=== PATIENT | female | born 1960 | race American Indian/Alaskan Native ===

== ENCOUNTER 2016-07-24 16:33 | Observation (INO) | payer SELFPAY ==
[2016-07-24 16:34] VITALS: BMI 27.4
[2016-07-24 16:49] VITALS: O2SAT 100
--- NOTE | 2016-07-24 17:33 | C.PDOC ---
History Of Present Illness 56-YEAR-OLD FEMALE, PRESENTS TO THE EMERGENCY DEPARTMENT WITH COMPLAINTS OF LEFT BACK PAIN X 3 MONTHS; PAIN IS WORSENING X 1 WEEK. PAIN IS LOCALIZED AND WORSE W POSITIONING. PATIENT IS S/P MRI 03/2016 +L4/5/S1 BULGING DISCS, R RENAL CYSTS. P STATES SHE HAS HAD DISC PROBLEM "ALL MY LIFE". PATIENT STATES HER PMD AND HAS NOT BEEN ABLE TO FIND NEW ONSET SINCE MRI. NO FOCAL WEAK/NUMB. PAIN OCC RADIATION B/L LEGS. NO FEVER, UTI SX. EXAM MILD DIST NONTOXIC +L CVAT BACK AROM WO DIFF NEURP INTACT ABD NEG Time Seen by Provider: 07/24/16 17:18 Chief Complaint (Nursing): Back Pain History Per: Patient History/Exam Limitations: no limitations Onset/Duration Of Symptoms: Days Current Symptoms Are (Timing): Still Present Past Medical History Reviewed: Historical Data, Nursing Documentation, Vital Signs Vital Signs: Last Vital Signs Temp 98.1 F 07/24/16 18:28 Pulse 66 07/24/16 18:28 Resp 16 07/24/16 18:28 BP 100/65 07/24/16 18:28 Pulse Ox 100 07/24/16 18:28 - Medical History PMH: Asthma, Seizures Denies: Chronic Kidney Disease Surgical History: Appendectomy Family History: States: No Known Family Hx - Social History Hx Tobacco Use: Yes Hx Alcohol Use: No Hx Substance Use: Yes (Cocaine, marijuana) - Immunization History Hx Tetanus Toxoid Vaccination: No Hx Influenza Vaccination: No Hx Pneumococcal Vaccination: No Review Of Systems Except As Marked, All Systems Reviewed And Found Negative. Constitutional: Negative for: Fever Respiratory: Negative for: Shortness of Breath Gastrointestinal: Negative for: Nausea, Vomiting Musculoskeletal: Positive for: Back Pain Neurological: Negative for: Weakness, Numbness Physical Exam - Physical Exam Appears: Non-toxic, No Acute Distress Skin: Warm, Dry, No Rash Oral Mucosa: Moist Lips: Normal Appearing Gingiva: Normal Appearing Neck: Normal ROM Gastrointestinal/Abdominal: Soft, No Tenderness Back: CVA Tenderness (LEFT), Other (AROM WO DIFF) Extremity: Normal ROM Neurological/Psych: Oriented x3 (NO FOCAL NEURO DEF) ED Course And Treatment - Laboratory Results Result Diagrams: 07/24/16 17:57 07/24/16 17:57 O2 Sat by Pulse Oximetry: 100 Progress - Data Reviewed Data Reviewed: Lab, Diagnostic imaging, Old records ED OBSERVATION Discharge: Yes Date of observation admission: 07/24/16 Time of observation admission: 17:30 - Observation admission statement Patient is being placed in observation because:: BACK PAIN - Goals of Observation Goals of observation are:: NO ACUTE FINDINGS, SX IMPROVE - Progress Note Progress Note: 07/24/16 18:[address] = NO ACUTE FINDINGS. ADVISED LAXATIVE, FU PMD /PAIN MGMT Disposition Counseled Patient/Family Regarding: Studies Performed, Diagnosis, Need For Followup, Rx Given - Disposition Disposition: HOME/ ROUTINE Disposition Time: 18:46 Condition: IMPROVED - Clinical Impression Clinical Impression: Low back pain, Constipation - Scribe Statement The provider has reviewed the documentation as recorded by the Lizbeth STROUD All medical record entries made by the Lizbeth were at my direction and personally dictated by me. I have reviewed the chart and agree that the record accurately reflects my personal performance of the history, physical exam, medical decision making, and the department course for this patient. I have also personally directed, reviewed, and agree with the discharge instructions and disposition.
[2016-07-24] MEDS ORDERED: Morphine 4 MG/ML VIAL ONE (17:42)
[2016-07-24] MEDS ORDERED: Sodium Chloride 0.9% 1,000 ML ONE (17:43)
[2016-07-24 18:09] LABS: BASO % 0.6 % (0.0-2.0); EOS # 0.1 K/uL (0.0-0.7); EOS % 2.1 % (0.0-4.0); HEMATOCRIT 44.5 % (34.0-47.0); LYMPH # 1.4 K/uL (1.0-4.3); MEAN CELL VOLUME 91.5 fL (81.0-99.0); MEAN CORPUSCULAR HEMOGLOBIN 30.5 pg (27.0-31.0); MEAN CORPUSCULAR HGB CONC 33.3 g/dL (33.0-37.0); MEAN PLATELET VOLUME 8.2 fL (7.2-11.7); MONO # 0.7 K/uL (0.0-0.8); MONO % 10.6 % (0.0-10.0); RED CELL DISTRIBUTION WIDTH 13.7 % (11.5-14.5); WHITE BLOOD COUNT 6.5 K/uL (4.8-10.8)
[2016-07-24 18:10] LABS: RBC URINE 2 /hpf (0-3); URINE BILIRUBIN NEGATIVE (NEGATIVE); URINE BLOOD NEGATIVE (NEGATIVE); URINE COLOR Yellow (YELLOW); URINE GLUCOSE (UA) NORMAL (Normal); URINE KETONE NEGATIVE (NEGATIVE); URINE LEUKOCYTE ESTERASE 1+ Leu/uL (Negative); URINE PROTEIN NEGATIVE (NEGATIVE)
[2016-07-24 18:18] LABS: CHLORIDE 103 mmol/L (98-107); POTASSIUM 5.5 mmol/L (3.6-5.2); SODIUM 140 mmol/L (132-148)
[2016-07-24 18:20] LABS: ALB/GLOB RATIO 1.2 (1.0-2.1); ALKALINE PHOSPHATASE 67 U/L (38-126); AST/SGOT 46 U/L (14-36); BILIRUBIN,TOTAL 0.7 mg/dL (0.2-1.3); CARBON DIOXIDE 25 mmol/L (22-30); GFR AFRICAN-AMERICAN > 60; TOTAL PROTEIN 7.9 g/dL (6.3-8.3)
[2016-07-24 18:21] LABS: ALT/SGPT 26 U/L (9-52); BLOOD UREA NITROGEN 14 mg/dL (7-17); GLUCOSE,RANDOM 98 mg/dL (65-105)
[2016-07-24 18:26] LABS: WBC URINE 5 /hpf (0-5)
[2016-07-24 18:29] VITALS: BP 100/65; PULSE 66; RESP 16; TEMP 98.1
--- NOTE | 2016-07-24 18:31 | CT ---
EXAM: CT Abdomen and Pelvis Without Intravenous Contrast CLINICAL HISTORY: 56 years old, female; Pain; Abdominal pain; Flank; Left lower quadrant (llq); Additional info: Abd pain l flank TECHNIQUE: Axial computed tomography images of the abdomen and pelvis without intravenous contrast. This CT exam was performed using one or more of the following dose reduction techniques: automated exposure control, adjustment of the mA and/or kV according to patient size, and/or use of iterative reconstruction technique. Coronal and sagittal reformatted images were created and reviewed. EXAM DATE/TIME: 07/24/2016 5:34 PM COMPARISON: CT - ABD PELVIS PO IV CONTRAST 01/16/2015 2:35:48 AM FINDINGS: Lower thorax: Heart size is normal. There is minimal scarring at the lung bases. There is a small hiatal hernia. ABDOMEN: Liver: unremarkable Gallbladder and bile ducts: unremarkable Pancreas: unremarkable Spleen: unremarkable Adrenals: unremarkable Kidneys and ureters: There is a right renal cyst.Kidneys and ureters are otherwise unremarkable. Stomach and bowel: Stomach is partially distended. Rotation is normal. Small bowel is mildly distended with fluid and air. There is no obstruction. Terminal ileum is unremarkable.Appendix is not visualized. There are clips at the base of the cecum. There is a right lower quadrant. There is moderate stool in the colon. There is minimal diverticulosis Appendix: See stomach and bowel PELVIS: Bladder: Bladder is almost completely empty. Reproductive: Uterus and adnexal structures are unremarkable. ABDOMEN and PELVIS: Intraperitoneal space: There is no significant fluid. There is no free air. Bones/joints: There are degenerative changes in the osseus structures. There is scoliosis. Soft tissues: There is a very small fat-containing umbilical hernia. Vasculature: There are calcified phleboliths. Vascular structures are unremarkable. Lymph nodes: There is no pathologic adenopathy. IMPRESSION: No renal or ureteral stones or hydronephrosis; diverticulosis without CT findings of diverticulitis; possible constipation Additional findings as described above.
[2016-07-24] MEDS ORDERED: Lidocaine 5% Patch TD STA (18:47)
== END 2016-07-24 18:46 | disposition home or self-care (01) ==
LOC: C.ER 16:33 → C.9OBSV 17:30
PROVIDERS: ADMIT Emergency Medicine; ATTEND Emergency Medicine
DX: M54.5 Low back pain (principal); K59.00 Constipation, unspecified; Z87.891 Personal history of nicotine dependence
CPT/HCPCS: 36415; 74176; 80053; 81001; 83690; 85025; 87086; 96374; G0378

== ENCOUNTER 2018-01-13 12:58 | Emergency (ER) | payer MEDICAID, OTHER ==
[2018-01-13 12:58] VITALS: BMI 27.4
[2018-01-13 13:11] VITALS: RESP 18; TEMP 98.3
--- NOTE | 2018-01-13 13:48 | C.PDOC ---
History Of Present Illness 57 year old female with PMHx of seizure presents to the ED complaining of right arm pain for the past 2 weeks. Pt notes no pain when not moving it but it is painful with any movement. Pain started from the hand and radiates up to the shoulder. States she is right hand dominant. She went to see her PMD who prescribed her muscle relaxers which did not relieve pain. Denies any trauma or injuries, sob, chest pain. Reports she has an appointment with PMD tomorrow. Time Seen by Provider: 01/13/18 13:19 Chief Complaint (Nursing): Upper Extremity Problem/Injury History Per: Patient History/Exam Limitations: no limitations Onset/Duration Of Symptoms: Days Current Symptoms Are (Timing): Still Present Quality: "Pain" Exacerbating Factor(s): Movement Recent travel outside of the [place]: No Past Medical History Reviewed: Historical Data, Nursing Documentation, Vital Signs Vital Signs: Last Vital Signs Temp 98.3 F 01/13/18 13:08 Pulse 82 01/13/18 13:08 Resp 18 01/13/18 13:08 BP 164/54 H 01/13/18 13:08 Pulse Ox 100 01/13/18 13:08 - Medical History PMH: Asthma, Seizures Denies: Chronic Kidney Disease Surgical History: Appendectomy Family History: States: No Known Family Hx - Social History Hx Tobacco Use: Yes Hx Alcohol Use: No Hx Substance Use: Yes (Cocaine, marijuana) - Immunization History Hx Tetanus Toxoid Vaccination: No Hx Influenza Vaccination: No Hx Pneumococcal Vaccination: No Review Of Systems Except As Marked, All Systems Reviewed And Found Negative. Musculoskeletal: Positive for: Arm Pain (right) Physical Exam - Physical Exam Appears: Non-toxic, No Acute Distress Skin: Warm, Dry, No Rash Head: Atraumatic, Normacephalic Eye(s): bilateral: Normal Inspection, EOMI Nose: Normal Oral Mucosa: Moist Neck: Normal ROM, No Midline Cervical Tenderness, No Paracervical Tenderness, Supple Chest: Symmetrical Cardiovascular: Rhythm Regular Respiratory: Normal Breath Sounds, No Accessory Muscle Use Extremity: No Normal ROM (limited due to pain ), Tenderness (diffuse tenderness to the right arm, worse at the hand. No swelling, no skin color changes. Cap refill < 2 sec. Strong pulse. Sensation intact. ), No Deformity, No Swelling Extremity: Bilateral: Normal Color And Temperature Pulses: Left Radial: Normal, Right Radial: Normal Neurological/Psych: Oriented x3, Normal Speech, Normal Sensation Gait: Steady ED Course And Treatment O2 Sat by Pulse Oximetry: 100 (RA) Pulse Ox Interpretation: Normal Progress Note: Toradol im ordered. Pt was instructed to follow up with PMD/ortho in 1-2 days. Return precautions discussed. Disposition - Disposition Referrals: Bozena Dove MD [Staff Provider] - Disposition: HOME/ ROUTINE Disposition Time: 13:54 Condition: STABLE Additional Instructions: Follow up with your primary medical doctor or clinic in 2-5 days for further evaluation. Take medications as prescribed. Return to the emergency department at any time if symptoms persist or worsen. Prescriptions: Naproxen [Naprosyn] 1 tab PO BID PRN #20 tab PRN Reason: Pain Instructions: Muscle Strain (DC) Forms: [facility] (Yoruba) - Clinical Impression Clinical Impression: Right arm pain - PA / BODY ART TECHNICIAN / Resident Statement MD/DO has reviewed & agrees with the documentation as recorded. - Scribe Statement The provider has reviewed the documentation as recorded by the Scribjaelyn Lewis All medical record entries made by the Yokastaibjaelyn were at my direction and personally dictated by me. I have reviewed the chart and agree that the record accurately reflects my personal performance of the history, physical exam, medical decision making, and the department course for this patient. I have also personally directed, reviewed, and agree with the discharge instructions and disposition.
[2018-01-13 14:06] VITALS: BP 152/83; PULSE 72
[2018-01-13 16:47] VITALS: O2SAT 100
== END 2018-01-13 14:05 | disposition home or self-care (01) ==
LOC: C.ER 12:58
DX: M79.601 Pain in right arm (principal)
CPT/HCPCS: 96372; 99284; J1885